=== PATIENT | female | born 1995 | race Caucasian/White ===

== ENCOUNTER 2018-01-14 14:14 | Outpatient (CLI) | payer OTHER ==
--- NOTE | 2018-01-14 17:17 | BD ---
DEXA BONE DENSITOMETRY: (Dual energy X-ray Absorptiometry) Date: 01/14/18 HISTORY: 22-year-old white female with low body mass index (less than 19.9). Height: 65 Weight: 123 lbs COMPARISON: None available. FINDINGS: The bone mineral density (BMD) is given in grams per square centimeter (g/cm2): LUMBAR SPINE: BMD(g/cm2) T-score Z-score L1: 0.995 0.0 0.3 L2: 1.102 0.7 0.9 L3: 1.108 0.2 0.5 L4: 1.012 -0.4 -0.2 Total: 1.054 0.1 0.3 HIP: Femoral neck: 1.086 2.1 2.1 Total: 1.289 2.8 2.8 IMPRESSION: 1. The mean bone mineral density of the lumbar spine is normal. Fracture risk is not increased. 2. The bone mineral density of the femoral neck is normal. Fracture risk is not increased. NICK Chacon POS: JULISSA
== END 2018-01-14 14:15 | disposition home or self-care (01) ==
LOC: BICMAMMO 14:14
PROVIDERS: ATTEND Obstetrics & Gynecology
DX: Z13.820 Encounter for screening for osteoporosis (principal); Z68.1 Body mass index [BMI] 19.9 or less, adult
CPT/HCPCS: 77080